=== PATIENT | male | born 1960 | race Caucasian/White ===

== ENCOUNTER → 2018-04-05 | Outpatient (CLI) | payer OTHER | LOC: M.CT 13:00 | DX: E04.2 Nontoxic multinodular goiter (principal); J92.9 Pleural plaque without asbestos; I25.10 Atherosclerotic heart disease of native coronary artery without angina pectoris; R91.1 Solitary pulmonary nodule; E83.52 Hypercalcemia; Z79.899 Other long term (current) drug therapy ==

== ENCOUNTER → 2018-12-10 | Outpatient (CLI) | payer OTHER ==
[~2018-12-10] MED LIST: ACTOS 45 MG45 M1 PO; AMARYL2 M1 PO; ASA81BEC PO; B-125000 MC1 SUBLING; JANUMET XR 50-1 EAC1 PO; LASIX 40 MG TAB40 MG PO; LIPITOR80 MG PO; LISINOPRIL2.5 MG PO; LOPRESSOR50 MG PO; NORTRIPTYLINE H25 M3 PO; OXYCODONE HCL 55 MG PO; PROTONIX40 M1 PO; ZOFRAN ODT4 MG DISSOLVE
[2018-12-10 07:50] LABS: POTASSIUM 4.1 mmol/L (3.5-5.1)
== END ==
LOC: M.LAB 05:09
PROVIDERS: Anesthesiology
DX: E87.6 Hypokalemia (principal); E11.9 Type 2 diabetes mellitus without complications

== ENCOUNTER → 2018-12-13 | Outpatient (CLI) | payer OTHER ==
--- NOTE | 2018-12-13 16:55 | EXE ---
[place] [address] STRESS ECHOCARDIOGRAM Name: AUSTEN TIJERINA Room: [facility]#: [id number] Admission: 12/13/18 Attend Phys: Malachi Garcia MD Discharge: Date of : 56 Date of Service: 12/13/18 1655 Report #: [id number] THIS REPORT FOR: //name// APPROVED REPORT Study performed: 12/13/2018 15:28:17 Exam: Dobutamine Stress Echo Indication: CAD Patient Location: Out-Patient Stress Nurse: Liz Varela RN Supervising Physician: Jesus Crum MD Ht: 6 ft 1 in HR: 89 bpm BP: 114/67 mmHg Medical History Cardiac Risk Factors: Hyperlipidemia, HTN, DM, Tobacco History (Former), FHX of CAD Procedure The patient underwent a Pharmacological Stress Test using Dobutamine. Blood pressure, heart rate, and EKG were monitored. An Echocardiogram was performed by master automotive glass technician in four stages in quad fashion. At peak stress, four selected images were obtained and placed side by side with resting images for comparison. Stress Test Details Stress Test: Pharmacological Stress Test using Dobutamine. Reason for pharmacologic stress test: physical limitation. HR Resting HR: 89 bpm Max Heart Rate (APMHR): 160 bpm Max HR Achieved: 138 bpm Target HR (85% APMHR): 136 bpm % of APMHR: 86 Recovery HR: 100 bpm HR response to stress: Normal HR response to stress BP Resting BP: 114/67 mmHg Max BP: 191/42 mmHg Recovery BP: 128/59 mmHg BP response to stress: Normal blood pressure response [place] [address] STRESS ECHOCARDIOGRAM Name: AUSTEN TIJERINA Room: [facility]#: [id number] Admission: 12/13/18 Attend Phys: Malachi Garcia MD Discharge: Date of : 56 Date of Service: 12/13/18 1655 Report #: [id number] Resting ECG: nonspecific baseline st-t changes Stress ECG: additional 11/2 mm of downsloping inferolateral st depression during dobutamine infusion Clinical Reason for Termination: Reached Target Heart Rate Pre-Stress Echo The resting Echocardiogram showed normal left ventricular contractility with an estimated Ejection Fraction of about 55-60%. Normal wall motion in all segments on baseline images. Post-Stress Echo The stress Echocardiogram showed normal left ventricular contractility with an estimated Ejection Fraction of about >70%. Normal augmentation of wall motion in all segments on post stress images. Conclusion Clinical Response: Non-ischemic Stress ECG Response: Indeterminant Stress Echo Images: Non-ischemic Other Information Study Quality: Fair <ELECTRONICALLY SIGNED> By: Jesus Crum MD, [facility] 12/13/18 1655 54 54 Jesus Crum MD, [facility] /INF
== END ==
LOC: M.CRD 14:37
DX: I25.810 Atherosclerosis of coronary artery bypass graft(s) without angina pectoris (principal); E87.6 Hypokalemia; E11.9 Type 2 diabetes mellitus without complications; E78.5 Hyperlipidemia, unspecified; I10 Essential (primary) hypertension; Z82.49 Family history of ischemic heart disease and other diseases of the circulatory system

== ENCOUNTER 2019-01-02 22:03 | Inpatient (IN) | payer OTHER ==
[~2019-01-02] VITALS: Ht 182.9 cm; Wt 103.2 kg
[2019-01-02 22:25] VITALS: BP 106/73
[2019-01-02] MEDS ORDERED: ASA81BEC PO (22:32)
[2019-01-02] MEDS ORDERED: LASIX 40 MG TAB40 MG PO (22:32)
[2019-01-02] MEDS ORDERED: B-125000 MC1 SUBLING (22:32)
[2019-01-02] MEDS ORDERED: LIPITOR80 MG PO (22:32)
[2019-01-02] MEDS ORDERED: LOPRESSOR50 MG PO (22:32)
[2019-01-02] MEDS ORDERED: ACTOS 45 MG45 M1 PO (22:33)
[2019-01-02] MEDS ORDERED: LISINOPRIL2.5 MG PO (22:33)
[2019-01-02] MEDS ORDERED: AMARYL2 M1 PO (22:33)
[2019-01-02] MEDS ORDERED: NORTRIPTYLINE H25 M3 PO (22:33)
[2019-01-02] MEDS ORDERED: PROTONIX40 M1 PO (22:34)
[2019-01-02] MEDS ORDERED: JANUMET XR 50-1 EAC1 PO (22:34)
[2019-01-02 23:33] LABS: HEMOGLOBIN 11.8 gm/dL (14.0-18.0); MCH 25.9 pg (26.0-34.0); MCHC 32.8 g/dL (28.0-37.0); MCV 78.8 fL (80.0-100.0); MPV 7.3 fl. (7.2-11.1); NUCLEATED RBCS 0 /100WBC; PLATELET COUNT* 415 thou/uL (150-400); RBC 4.56 mil/uL (4.50-6.00); RDW-CV 18.5 % (10.5-14.5); WBC 14.3 thou/uL (4.0-11.0)
[2019-01-02 23:36] LABS: CALCIUM 8.9 mg/dL (8.5-10.1); CREATININE 2.1 mg/dL (0.6-1.3); INR 1.2; POTASSIUM 3.8 mmol/L (3.5-5.1); PROTIME 12.3 Seconds (9.20-11.50)
[2019-01-02 23:46] LABS: ALBUMIN 2.8 g/dL (3.4-5.0); MAGNESIUM 1.5 mg/dL (1.8-2.4); TOTAL BILIRUBIN 0.9 mg/dL (<0.1-1.0); TOTAL PROTEIN 7.8 g/dL (6.4-8.2)
[2019-01-03 01:22] LABS: ABSOLUTE LYMPHOCYTES 0.7 thou/uL (0.8-5.3); ABSOLUTE MONOCYTES 0.9 thou/uL (0.0-1.2); ABSOLUTE NEUTROPHILS 12.7 thou/uL (1.6-8.1); ANISOCYTOSIS 1+; PLATELET ESTIMATE INCREASED
[2019-01-03 02:21] LABS: URINE BILIRUBIN NEGATIVE (Negative); URINE BLOOD 1+ (Negative); URINE CLARITY CLEAR; URINE COLOR YELLOW; URINE GLUCOSE-RANDOM TRACE (Negative); URINE KETONES TRACE (Negative); URINE LEUKOCYTES-REFLEX NEGATIVE (Negative); URINE NITRITE-REFLEX NEGATIVE (Negative); URINE PROTEIN 1+ (Negative); URINE UROBILINOGEN 0.2 E.U./dl (0.2-1.0)
[2019-01-03 02:50] LABS: FINE GRANULAR CASTS 4-10 Moderate /LPF (None Seen); HYALINE CASTS 0-3 Few /LPF (None Seen); SQUAMOUS 4-10 Moderate /LPF (0-3)
[2019-01-03 02:51] LABS: URINE WBC-REFLEX 6-15 Few /HPF (0-5)
[2019-01-03 02:52] LABS: CRYSTALS None Seen /LPF (None Seen); URINE RBC 0-2 Rare /HPF (0-2)
[2019-01-03 03:50] VITALS: BP 145/76
[2019-01-03 04:00] VITALS: BP 136/76
[2019-01-03 08:00] VITALS: BP 143/74
[2019-01-03 12:46] VITALS: BP 123/60
[2019-01-03 15:29] LABS: AMP/METHAMP Negative (Negative); BARBITURATES Negative (Negative); BENZODIAZEPINES Negative (Negative); COCAINE Negative (Negative); METHADONE Negative (Negative); OPIATES POSITIVE (Negative); PCP Negative (Negative); THC Negative (Negative)
[2019-01-03 15:55] VITALS: BP 135/54
--- NOTE | 2019-01-03 16:48 | 2DMMODE ---
[place] [address] 2 D/M-MODE ECHOCARDIOGRAM Name: AUSTEN TIJERINA Room: [facility] IN [facility]#: [id number] Admission: 01/03/19 Attend Phys: Terrence Greene Discharge: Date of : 56 Date of Service: 01/03/19 1648 Report #: [id number] THIS REPORT FOR: //name// APPROVED REPORT Study performed: 01/03/2019 14:45:00 EXAM: Comprehensive 2D, Doppler, and color-flow Echocardiogram Patient Location: In-Patient Room #: 209 Status: routine BSA: 2.25 HR: 103 bpm BP: 123/60 mmHg Rhythm: NSR Other Information Study Quality: Good Indications Dyspnea 2D Dimensions IVSd: 10.28 (7-11mm) LVOT Diam: 21.66 (18-24mm) LVDd: 54.48 mm PWd: 10.64 (7-11mm) Ascending Ao: 36.01 (22-36mm) LVDs: 33.13 (25-40mm) Aortic Root: 36.54 mm Volumes Left Atrial Volume (Systole) LA ESV Index: 31.10 mL/m2 Aortic Valve AoV Peak Kevin.: 1.75 m/s AO Peak Gr.: 12.22 mmHg LVOT Max P.81 mmHg AO Mean Gr.: 7.42 mmHg LVOT Mean P.94 mmHg LVOT Max V: 1.21 m/s AO V2 VTI: 30.98 cm LVOT Mean V: 0.79 m/s STEVE (VTI): 2.37 cm2 LVOT V1 VTI: 19.94 cm Mitral Valve E/A Ratio: 0.56 MV Decel. Time: 126.39 ms MV E Max Kevin.: 0.67 m/[place] [address] 2 D/M-MODE ECHOCARDIOGRAM Name: AUSTEN TIJERINA Room: [address] IN ..#: [id number] Admission: 01/03/19 Attend Phys: Terrence Greene Discharge: Date of : 56 Date of Service: 01/03/19 1648 Report #: [id number] MV PHT: 36.65 ms MVA (PHT): 6.00 cm2 TDI E/Lateral E': 5.58 E/Medial E': 8.38 Medial E' Kevin.: 0.08 m/s Lateral E' Kevin.: 0.12 m/s Pulmonary Valve PV Peak Kevin.: 0.90 m/s PV Peak Gr.: 3.23 mmHg Left Ventricle The left ventricle is normal size. There is normal LV segmental wall motion. There is normal left ventricular wall thickness. Left ventricular systolic function is normal. The left ventricular ejection fraction is within the normal range. LVEF is 55-60%. Grade I - abnormal relaxation pattern. Right Ventricle The right ventricle is normal size. The right ventricular systolic function is normal. Atria Left atrium is mildly dilated. The right atrium size is normal. Aortic Valve Mild aortic valve sclerosis. No aortic regurgitation is present. There is no aortic valvular stenosis. Mitral Valve There is mitral annular calcification. Trace mitral regurgitation. No evidence of mitral valve stenosis. Tricuspid Valve The tricuspid valve is normal in structure. Trace tricuspid regurgitation. Unable to assess PA pressure. Pulmonic Valve The pulmonary valve is normal in structure. Trace pulmonic regurgitation. Great Vessels The aortic root is normal in size. IVC is normal in size and collapses >50% [place] [address] 2 D/M-MODE ECHOCARDIOGRAM Name: AUSTEN TIJERINA Room: [address] IN [facility]#: [id number] Admission: 01/03/19 Attend Phys: Terrence Greene Discharge: Date of : 56 Date of Service: 01/03/19 1648 Report #: [id number] Pericardium There is no pericardial effusion. <Conclusion> LVEF is 55-60%. Left atrium is mildly dilated. Mild aortic valve sclerosis. <ELECTRONICALLY SIGNED> By: Malachi Garcia MD, FACC 01/03/198 47 47 Malachi Garcia MD, [facility] /INF
--- NOTE | 2019-01-03 18:01 | EKG ---
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: [place] : 1960 Requested By: Yadi James Order Number: [id number] MD: Malachi Garcia Measurements Intervals [place] Rate: 143 P: 43 MO: 128 QRS: 30 QRSD: 105 T: 201 QT: 304 QTc: 469 Interpretive Statements Sinus tachycardia Probable left atrial enlargement Repol abnrm suggests ischemia, anterolateral Compared to ECG 09/22/2005 16:18:16 Left ventricular hypertrophy no longer present Possible ischemia still present Electronically Signed On 01-03-2019 18:01:35 CDT by Malachi Garcia [email or web address] <ELECTRONICALLY SIGNED> By: Malachi Garcia MD, FACC 01/03/19 1801 29 29 Malachi Garcia MD, [facility] /EPI
[2019-01-03 20:45] VITALS: BP 151/74
[2019-01-04] VITALS: BP 131/68
[2019-01-04 04:00] VITALS: BP 120/54
[2019-01-04 04:32] LABS: MCHC 33.3 g/dL (28.0-37.0); RBC 3.72 mil/uL (4.50-6.00); RDW-CV 18.4 % (10.5-14.5); WBC 8.7 thou/uL (4.0-11.0)
[2019-01-04 04:53] LABS: HEMOGLOBIN 9.7 gm/dL (14.0-18.0)
[2019-01-04 05:26] LABS: CALCIUM 8.2 mg/dL (8.5-10.1); CREATININE 1.3 mg/dL (0.6-1.3); MAGNESIUM 1.6 mg/dL (1.8-2.4); PHOSPHORUS* 1.6 mg/dL (2.5-4.9); TOTAL BILIRUBIN 0.6 mg/dL (<0.1-1.0)
[2019-01-04 05:30] LABS: POTASSIUM 2.7 mmol/L (3.5-5.1)
[2019-01-04 08:04] VITALS: BP 117/53
[2019-01-04 20:00] VITALS: BP 120/57
[2019-01-05] VITALS (7 sets, daily range): BP systolic 119–149; BP diastolic 55–76
[2019-01-05 07:15] LABS: HEMATOCRIT 28.5 % (42.0-52.0); HEMOGLOBIN 9.4 gm/dL (14.0-18.0); MCH 26.1 pg (26.0-34.0); MCV 78.9 fL (80.0-100.0); MPV 7.9 fl. (7.2-11.1); RBC 3.62 mil/uL (4.50-6.00); RDW-CV 18.4 % (10.5-14.5); WBC 9.6 thou/uL (4.0-11.0)
[2019-01-05 07:27] LABS: ALBUMIN 1.9 g/dL (3.4-5.0); CALCIUM 7.8 mg/dL (8.5-10.1); CREATININE 1.5 mg/dL (0.6-1.3); MAGNESIUM 1.6 mg/dL (1.8-2.4); PHOSPHORUS* 1.7 mg/dL (2.5-4.9); POTASSIUM 3.4 mmol/L (3.5-5.1); TOTAL BILIRUBIN 0.5 mg/dL (<0.1-1.0); TOTAL PROTEIN 6.2 g/dL (6.4-8.2)
[2019-01-06 03:30] VITALS: BP 140/48
[2019-01-06 08:00] VITALS: BP 146/50
[2019-01-06 11:54] VITALS: BP 115/51
[2019-01-06] MEDS ORDERED: ZOFRAN ODT4 MG DISSOLVE (12:59)
[2019-01-06 13:25] VITALS: BP 127/65
[2019-01-06 13:27] VITALS: BP 127/65
[2019-01-06] MEDS ORDERED: OXYCODONE HCL 55 MG PO (13:46)
--- NOTE | 2019-01-08 13:09 | CON ---
[facility] [address] [place] [address] CONSULTATION Name: AUSTEN TIJERINA Room: [address] IN M.R.#: [id number] Admission: 01/03/19 Attend Phys: Tyler Garza Discharge: 01/06/19 Date of : 56 Report #: [id number] THIS REPORT FOR: //name// CC: Cira Greene DICTATED BY: Jammie Boyle [facility] DATE OF SERVICE: 01/03/2019 Please note at the time of this dictation, the patient was seen and physically examined by myself. REASON FOR CONSULTATION: Abdominal pain, history of pancreatitis. HISTORY OF PRESENT ILLNESS: This is a 58-year-old male who presented to the Emergency Room after being seen out of state in [facility]. 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 He states it was not chest pain, but it was persistent abdominal pain. They wanted to admit him, but he did not want to be admitted. He wanted to get back here once he knew what his diagnosis was. They had diagnosed him with pancreatitis. His LFTs were completely normal at that time. They stated that his lipase was greater than 400 and that he did have a CT scan that showed sludge as well as enlarged liver and peripancreatic edema was noted at that time. The patient states he was able to drive back home. He got home on the 01/02. He states his pain had pretty much subsided by that time. He has not really had anything to eat or drink over this period of time, but given that he was recently diagnosed with that, he went home, took a shower, and then came to the Emergency Room to be seen and was admitted for further observation. The patient did undergo a double on 12/07 that showed short-segment Holt esophagus with no dysplasia, 3-cm hiatal hernia. He had diverticulosis in the sigmoid, and he had some hyperplastic polyps that were noted with a repeat in 5 years. The patient at this time, at the time he was seen, denies any nausea, vomiting, or any abdominal pain at this time. He states his bowels last moved was Thursday, but he really has not had anything significant to eat since that time. ALLERGIES: No known drug allergies. MEDICATIONS FROM HOME: Aspirin, vitamin B12, Lipitor, Lopressor, Lasix, Amaryl, nortriptyline, Zestril, Actos, Janumet, and Protonix. PAST MEDICAL HISTORY: Diabetic, hypertension, [place] [address] CONSULTATION Name: AUSTEN TIJERINA Room: [address] IN M.R.#: [id number] Admission: 01/03/19 Attend Phys: Tyler Garza Discharge: 01/06/19 Date of : 56 Report #: [id number] PAST SURGICAL HISTORY: History of bypass surgery. FAMILY HISTORY: Negative for any GI or female cancers. SOCIAL HISTORY: Denies any alcohol or illegal drug use. He does smoke on a regular basis. REVIEW OF SYSTEMS: Twelve-point review of systems is essentially negative except what is mentioned in the HPI. PHYSICAL EXAMINATION: VITAL SIGNS: Temperature 37, pulse 110, respirations 18, blood pressure 143/74. HEART: Regular rate and rhythm. LUNGS: Clear, but diminished. ABDOMEN: Soft, positive bowel sounds in all 4 quadrants with no masses or tenderness noted. LABORATORY DATA: Hemoglobin is 11.8, white count is 14.3, platelets are 415. GFR is 32. Lipase is 334. BNP was 3469 and his LFTs are completely normal. Chest x-ray, negative. Abdominal x-ray done this morning showed an enlarged liver with sludge noted and a CBD of 4.3 mm. IMPRESSION: 1. Abdominal pain, resolved. 2. Pancreatitis, resolved. 3. Sludge noted in the gallbladder. 4. Leukocytosis. 5. Chronic kidney disease. 6. Heart disease. PLAN: 1. We will consult Dr. Go, General Surgery. 2. We will consult junior qa analyst, Dr. Garcia, whom he sees for okay to possibly have surgery. 3. Clear liquids and advance as tolerated. Thank you for allowing us to participate in this patient's care. Please do not hesitate to call with any questions in regard to this consult. <ELECTRONICALLY SIGNED> By: Alexei Gilliam DO 01/08/19 1309 1228 [id number] Gilliam DO /nt
--- NOTE | 2019-01-10 14:06 | PATH ---
[facility] [address] [place] [address] PATHOLOGY RPT PROCEDURE Name: AUSTEN TIJERINA Room: [address] IN M.R.#: [id number] Admission: 01/03/19 Date of : 56 Discharge: 01/06/19 Report #: [id number] Path Case #: [id number] [facility] Accession Number: [id number] . 01 Material submitted: . gallbladder - GALLBLADDER . 01 Clinical history: . Cholecystitis with gallstone, pancreatitis . 02 Diagnosis: Gallbladder: - Chronic cholecystitis and cholesterolosis with benign sentinel lymph node. See comment. . (SLAVA:corbin; 01/10/2019) QMS 01/10/2019 1153 Local . 02 Comment: No calculi are identified in the submitted specimen. (SLAVA:corbin; 01/10/2019) . 02 Electronically signed: . Pineda Howell MD, Pathologist NPI- [id number] . 01 Gross description: . Received in formalin labeled "Austen Tijerina, gallbladder," is an intact, turgid gallbladder measuring 9.2 x 4.7 x 3.8 cm in greatest dimensions. The serosal surface is smooth to partially disrupted, dark green to focally hemorrhagic and partially adipose-covered in appearance. Opening the specimen reveals a dark green mucosa displaying faint yellow highlights and measuring 0.1 cm in thickness, with a gallbladder wall thickness of up to 0.5 cm including attached adipose tissue. No polyps or nodules are identified grossly. Calculi are not present within the specimen or specimen container. Tram Inspector sections of the infundibulum, body and fundus are submitted in cassette A1. (DAC; 01/07/2019) XDC/XID 01/10/2019 1153 Local . 02 Pathologist provided ICD-10: K81.1, K82.4 . 02 CPT . 543814 Specimen Comment: A courtesy copy of this report has been sent to [phone] Specimen Comment: [phone], [place] [address] PATHOLOGY RPT PROCEDURE Name: AUSTEN TIJERINA Room: [address] IN M.R.#: [id number] Admission: 01/03/19 Date of : 56 Discharge: 01/06/19 Report #: [id number] Path Case #: [id number] Specimen Comment: Report sent to ,DR BRICENO / DR BENSON Performed at: [address], [place], [place] [id number] MD Anton Brambila MD Phone: [phone] Performed at: 02 [facility] [address], [place], [place] [id number] MD Pineda Howell MD Phone: [phone]
--- NOTE | 2019-01-18 13:35 | OP ---
[address] [address] OPERATIVE REPORT Name: AUSTEN TIJERNIA Room: [address] IN .R.#: [id number] Admission: 01/03/19 Attend Phys: Tyler Garza Discharge: 01/06/19 Date of : 56 Report #: [id number] THIS REPORT FOR: //name// CC: Alexander Hernandez RIBBING MACHINE OPERATOR Terrence Greene DICTATED BY: Ilda Rodriguez DO DATE OF SERVICE: 01/05/2019 Dictating for Alexander Go DO PRIMARY CARE PHYSICIAN: Cira Han, nurse practitioner. PREOPERATIVE DIAGNOSES: Acute cholecystitis with pancreatitis. POSTOPERATIVE DIAGNOSES: Acute cholecystitis with pancreatitis. PROCEDURE PERFORMED: Laparoscopic cholecystectomy, intraoperative cholangiogram, and surgeon interpretation of images and immunofluorescence imaging. PRIMARY SURGEON: Alexander Go DO CHILD WELFARE COUNSELOR: Ilda Rodriguez DO, PGY2 SECOND TRACK MECHANIC: Damian Brice, MS4 ANESTHESIA: General and TAP block. ESTIMATED BLOOD LOSS: 20 mL. FINDINGS: Acute on chronic inflammation of the gallbladder, normal biliary anatomy. On cholangiogram, the cystic duct appeared patent as well as the common bile duct with no obvious filling defects. Contrasts flowed freely into the duodenum. Both hepatic radicles were also visualized. COMPLICATIONS: None. SPECIMEN: Gallbladder. INDICATIONS FOR PROCEDURE: The patient is a 58-year-old gentleman, who presented to the Emergency Department on 01/02 with complaint of continued abdominal pain and nausea. A few days prior to his presentation, he was in [address] [address] OPERATIVE REPORT Name: AUSTEN TIJERINA Room: [address] IN [facility].#: [id number] Admission: 01/03/19 Attend Phys: Tyler Garza Discharge: 01/06/19 Date of : 56 Report #: [id number] [place] and was seen in the Emergency Department and diagnosed with pancreatitis. He elected to not agree to admission in [place] and drove home. He then promptly presented to the Emergency Department here for further workup. On admission, his lipase was normal; however, he continued to have abdominal pain and nausea. He did have a leukocytosis as well as tachycardia on admission. Total bili and LFTs are within normal limits. He was noted to have sludge in the gallbladder on ultrasound as well. He has a history of coronary artery disease, status post CABG, so he did undergo cardiac clearance prior to surgery as well as a CTA of the chest to rule out a pulmonary embolus; as his D-dimer is elevated, this was negative, so we planned to proceed with laparoscopic cholecystectomy with intraoperative cholangiogram. Procedure, risks, benefits, possible complications were all discussed with the patient in detail to include bleeding, infection, injury to surrounding structures, bile leak, injury to common bile duct, anesthesia risks, and other risks of surgery were discussed with the patient in great detail. He voiced complete understanding and wished to proceed with surgery. DESCRIPTION OF PROCEDURE: Informed consent was obtained. The patient was taken to the operating room and placed supine on the operating room table. The patient was getting scheduled antibiotics prior to surgery. SCDs were placed on bilateral lower extremities. General endotracheal anesthesia was induced without difficulty. A TAP block was performed. The patient was prepped and draped in the standard sterile fashion. Timeout was performed to ensure correct patient and procedure. We began by making a vertical 3-cm supraumbilical incision with a #11 blade scalpel. Incision was carried down through the subcutaneous tissue using electrocautery until we reached the level of the fascia. Fascia was scored with electrocautery and then grasped on either side with 2 Kochers. Fascia was elevated and then incised with electrocautery. Peritoneum was entered bluntly using a hemostat. A 0 Vicryl stay sutures were placed on either side of the fascial opening. A 5-mm Kathryn trocar was then inserted through our fascial opening. Abdomen was insufflated without issues. Laparoscopic camera was inserted. A sweep of the anterior abdominal contents was performed. No obvious abnormalities noted. We then placed a 10-mm subxiphoid trocar under direct visualization. Blunt grasper was inserted and gallbladder was identified in the expected position in the right upper quadrant. Our two 5-mm right upper quadrant trocars were then inserted under direct visualization. The players assistant grasped the gallbladder fundus with a locking grasper and retracted it superiorly and anteriorly. Gallbladder did appear to be acutely inflamed. Casandra pouch was grasped. There is a thick layer of fat adhered to the surface of the gallbladder. Electrocautery was used to score the peritoneum overlying this. We then began our dissection lateral to Casandra pouch using electrocautery. [place] dissector was also used to grasp some of the overlying fat and bluntly dissected away from our cystic duct. Immunofluorescence imaging was used to identify our cystic duct and common bile duct. We then retracted the gallbladder laterally to dissect out medial aspect of the cystic duct. Combination of electrocautery and blunt dissection were [address] [address] OPERATIVE REPORT Name: AUSTEN TIJERINA Room: [address] IN Isma#: [id number] Admission: 01/03/19 Attend Phys: Tyler Garza Discharge: 01/06/19 Date of : 56 Report #: [id number] used to accomplish this. Once our cystic duct was easily identified, [place] dissector was used to bluntly dissect a window just posterior to the duct. A 10-mm clip commissioned police officer was then used to place a clip on the superior aspect of the cystic duct. Laparoscopic scissors were used to partially cut our cystic duct. A 14-gauge Angiocath was then inserted through the right upper quadrant of the abdominal wall. Our cholangiogram catheter with a 3-way stopcock, saline and Omnipaque were brought onto the field. Cholangiogram catheter was inserted through the Angiocath, was inserted into the opening and our cystic duct and then secured with another clip. The patient was flattened out. C-arm was brought in. Back End Architect image was obtained to ensure correct orientation. Once we were in good position, we ran fluoro using Omnipaque. The cystic duct appeared patent as well as the common bile duct. Contrast flowed freely into the duodenum with no obvious filling defects. Both hepatic radicles were also easily visualized. Our fluoro time was 11 seconds. C-arm was then backed away. The patient was returned to the head up in left side down position. Precision Filer Hand then regrasped the gallbladder, retracted it superiorly and anteriorly. Clip securing our cholangiogram catheter was removed. Cholangiogram catheter was removed. We then placed 3 clips on the distal aspect of the cystic duct. Cystic duct was completely transected then using laparoscopic scissors. Cystic artery was identified just posterior to our cystic duct in the expected position. It was also dissected free using combination of blunt dissection and electrocautery. A 10-mm clip commissioned police officer was used to place 1 clip proximally and 2 clips distally on the cystic artery. It was then transected using laparoscopic scissors. Our gallbladder was then completely removed from the liver bed using electrocautery. We did encounter a small posterior cystic artery. Again, 10-mm clip commissioned police officer was used to place a clip on this. Gallbladder was completely removed from the liver bed and placed in an EndoCatch bag. The liver edge was then lifted up, so that we could inspect liver bed. Suction pusher operator was used to irrigate the right upper quadrant. We took another look at our clips to ensure there was no leak. Liver bed appeared hemostatic. The patient was then flattened out. Right upper quadrant was again irrigated with the suction pusher operator. Our 5-mm right upper quadrant trocars were removed under direct visualization. The subxiphoid 10-mm trocar was removed under direct visualization. Abdomen was desufflated. The 5-mm Kathryn trocar was removed as well as the gallbladder within the EndoCatch bag. Fascia at the supraumbilical incision was closed using 0 Vicryl suture in a [id number] fashion. Subcutaneous tissue was closed using 3-0 Vicryl suture in a simple interrupted and inverted fashion. Skin was closed using 4-0 Monocryl suture in a running subcuticular fashion. Right upper quadrant and subxiphoid trocar sites were closed using 4-0 Monocryl suture in a simple interrupted and inverted fashion. Abdomen was cleansed and dried. Sterile dressings were applied using Mastisol, Steri-Strips, Tegaderms, 4 x 4s, and Medipore tape. The patient tolerated the [address] [address] OPERATIVE REPORT Name: AUSTEN TIJERINA Room: M.209-P DIS IN M.R.#: [id number] Admission: 01/03/19 Attend Phys: Tyler Garza Discharge: 01/06/19 Date of : 56 Report #: [id number] procedure very well. He was transferred to the PACU in stable condition with plans to return to the floor and likely discharged home tomorrow. <ELECTRONICALLY SIGNED> By: Alexander Go DO 01/18/19 1335 1740 1921Aney Go DO /nt
== END 2019-01-06 13:49 | disposition home or self-care (01) | DRG 853 ==
LOC: M.ERS 22:03 → M.TBA-ER 01-03 01:17 → M.2W 01-03 01:17
PROVIDERS: Personal Emergency Response Attendant; Registered Nurse; ADMIT Internal Medicine
PROC: BF121ZZ Fluoroscopy of Gallbladder using Low Osmolar Contrast (ICD-10-PCS; principal; 2019-01-05)
PROC: 0FT44ZZ Resection of Gallbladder, Percutaneous Endoscopic Approach (ICD-10-PCS; principal; 2019-01-05)
DX: A41.9 Sepsis, unspecified organism (principal); K85.90 Acute pancreatitis without necrosis or infection, unspecified; K81.0 Acute cholecystitis; N17.9 Acute kidney failure, unspecified; N18.9 Chronic kidney disease, unspecified; F17.210 Nicotine dependence, cigarettes, uncomplicated; E66.9 Obesity, unspecified; I25.10 Atherosclerotic heart disease of native coronary artery without angina pectoris; R00.0 Tachycardia, unspecified; I12.9 Hypertensive chronic kidney disease with stage 1 through stage 4 chronic kidney disease, or unspecified chronic kidney disease; E11.22 Type 2 diabetes mellitus with diabetic chronic kidney disease; E78.5 Hyperlipidemia, unspecified; D64.9 Anemia, unspecified; Z68.30 Body mass index [BMI] 30.0-30.9, adult; Z95.1 Presence of aortocoronary bypass graft; Z79.82 Long term (current) use of aspirin; Z79.899 Other long term (current) drug therapy; Z90.49 Acquired absence of other specified parts of digestive tract

== ENCOUNTER → 2019-01-12 | Outpatient (CLI) | payer OTHER ==
--- NOTE | 2019-01-15 10:07 | PATH ---
[address] [address] PATHOLOGY RPT PROCEDURE Name: AUSTEN TIJERINA Room: [facility].#: [id number] Admission: 01/12/19 Date of : 56 Discharge: Report #: [id number] Path Case #: [id number] [facility] Accession Number: [id number] . 01 Material submitted: . thigh - LEFT THIGH. Modifiers: left . 01 Clinical history: . Wound left thigh . 02 Diagnosis: Skin, left thigh, punch biopsy: - Hyperplastic squamous epithelium with hyperkeratosis. - Focal ulceration with associated moderate chronic inflammation. (SKM:pit; 01/14/2019) QTP 01/14/2019 1252 Local . 02 Electronically signed: . Melchor Saenz MD, Pathologist NPI- [id number] . 01 Gross description: . The specimen is received in formalin, labeled "Austen Tijerina, left leg wound" and "left thigh punches" per follows specimen form. Received are 2 pink-sheppard skin punches measuring 0.4 x 0.4 x 0.4 cm and 0.4 x 0.4 x 0.5 cm. They are d differentially inked, bisected, and entirely submitted in A1. (SDY; 01/13/2019) SYU/SYU 01/13/2019 1319 Local . 02 Pathologist provided ICD-10: L85.9, L98.499, L98.9 . 02 CPT . 321525 Specimen Comment: A courtesy copy of this report has been sent to [phone] Specimen Comment: [phone] Specimen Comment: Report sent to / DR BENSON Performed at: 01 [facility] [address], [place], [place] [id number] MD Anton Brambila MD Phone: [phone] Performed at: 02 [facility] [address], [place], [place] [id number] MD Pineda Howell MD Phone: [phone]
== END ==
LOC: M.WC 08:00
DX: E11.622 Type 2 diabetes mellitus with other skin ulcer (principal); L89.892 Pressure ulcer of other site, stage 2; L97.122 Non-pressure chronic ulcer of left thigh with fat layer exposed; E11.65 Type 2 diabetes mellitus with hyperglycemia; E66.9 Obesity, unspecified; E78.5 Hyperlipidemia, unspecified; D48.5 Neoplasm of uncertain behavior of skin; I10 Essential (primary) hypertension; I25.10 Atherosclerotic heart disease of native coronary artery without angina pectoris; K21.9 Gastro-esophageal reflux disease without esophagitis; F17.200 Nicotine dependence, unspecified, uncomplicated; Z90.49 Acquired absence of other specified parts of digestive tract

== ENCOUNTER → 2019-01-19 | Outpatient (CLI) | payer OTHER | LOC: M.WC 05:00 | DX: E11.622 Type 2 diabetes mellitus with other skin ulcer (principal); L89.892 Pressure ulcer of other site, stage 2; L97.122 Non-pressure chronic ulcer of left thigh with fat layer exposed; L03.116 Cellulitis of left lower limb; E11.65 Type 2 diabetes mellitus with hyperglycemia; E66.9 Obesity, unspecified; E78.5 Hyperlipidemia, unspecified; I87.2 Venous insufficiency (chronic) (peripheral); I10 Essential (primary) hypertension; I25.10 Atherosclerotic heart disease of native coronary artery without angina pectoris; K21.9 Gastro-esophageal reflux disease without esophagitis; F17.200 Nicotine dependence, unspecified, uncomplicated ==

== ENCOUNTER → 2019-01-26 | Outpatient (CLI) | payer OTHER | LOC: M.WC 04:55 | DX: E11.622 Type 2 diabetes mellitus with other skin ulcer (principal); L89.892 Pressure ulcer of other site, stage 2; L97.122 Non-pressure chronic ulcer of left thigh with fat layer exposed; L03.116 Cellulitis of left lower limb; E11.65 Type 2 diabetes mellitus with hyperglycemia; E78.5 Hyperlipidemia, unspecified; E66.9 Obesity, unspecified; I10 Essential (primary) hypertension; I25.10 Atherosclerotic heart disease of native coronary artery without angina pectoris; K21.9 Gastro-esophageal reflux disease without esophagitis; F17.200 Nicotine dependence, unspecified, uncomplicated ==

== ENCOUNTER → 2019-02-02 | Outpatient (CLI) | payer OTHER | LOC: M.WC 05:41 | DX: E11.622 Type 2 diabetes mellitus with other skin ulcer (principal); L89.892 Pressure ulcer of other site, stage 2; L97.121 Non-pressure chronic ulcer of left thigh limited to breakdown of skin; L03.116 Cellulitis of left lower limb; E11.65 Type 2 diabetes mellitus with hyperglycemia; E66.9 Obesity, unspecified; E78.5 Hyperlipidemia, unspecified; I87.2 Venous insufficiency (chronic) (peripheral); I10 Essential (primary) hypertension; I25.10 Atherosclerotic heart disease of native coronary artery without angina pectoris; K21.9 Gastro-esophageal reflux disease without esophagitis; F17.200 Nicotine dependence, unspecified, uncomplicated ==

== ENCOUNTER → 2019-02-09 | Outpatient (CLI) | payer OTHER | LOC: M.WC 03:57 | DX: E11.622 Type 2 diabetes mellitus with other skin ulcer (principal); L97.121 Non-pressure chronic ulcer of left thigh limited to breakdown of skin; L89.892 Pressure ulcer of other site, stage 2; L03.116 Cellulitis of left lower limb; I10 Essential (primary) hypertension; E78.5 Hyperlipidemia, unspecified; I25.10 Atherosclerotic heart disease of native coronary artery without angina pectoris; E66.9 Obesity, unspecified; F17.200 Nicotine dependence, unspecified, uncomplicated; Z68.30 Body mass index [BMI] 30.0-30.9, adult ==

== ENCOUNTER → 2019-07-19 | Outpatient (CLI) | payer OTHER | LOC: M.ULTRA 10:43 | DX: E04.2 Nontoxic multinodular goiter (principal); E83.52 Hypercalcemia ==

== ENCOUNTER → 2019-07-26 | Outpatient (CLI) | payer OTHER | LOC: M.ULTRA 12:44 | DX: K76.0 Fatty (change of) liver, not elsewhere classified (principal); N18.3 Chronic kidney disease, stage 3 (moderate) ==

== ENCOUNTER → 2019-08-02 | Outpatient (CLI) | payer OTHER | LOC: M.NUC 07-22 13:42 | DX: D35.1 Benign neoplasm of parathyroid gland (principal) ==

== ENCOUNTER → 2019-11-30 | Outpatient (CLI) | payer OTHER ==
--- NOTE | 2019-11-30 17:30 | EXE ---
[place] [address] STRESS ECHOCARDIOGRAM Name: AUSTEN TIJERINA Room: [facility] Isma#: [id number] Admission: 11/30/19 Attend Phys: Malachi Garcia MD Discharge: Date of : 56 Date of Service: 11/30/19 1730 Report #: [id number] THIS REPORT FOR: cc: Cira Han Tammy RNP Blick, David R. MD [facility] ~ APPROVED REPORT Study performed: 11/30/2019 15:07:47 Exam: Dobutamine Stress Echo Indication: CAD Patient Location: Out-Patient Stress Nurse: Liz Varela RN Supervising Physician: Malachi Garcia MD Ht: 5 ft 11 in HR: 82 bpm BP: 148/59 mmHg Medical History Medical History: CAD Allergies: No known drug allergies Cardiac Risk Factors: Age, , Hyperlipidemia, HTN, DM Previous Cardiac Procedures: CABG, PCI Procedure The patient underwent a Pharmacological Stress Test using Dobutamine. Blood pressure, heart rate, and EKG were monitored. An Echocardiogram was performed by clinical dental technician in four stages in quad fashion. At peak stress, four selected images were obtained and placed side by side with resting images for comparison. Stress Test Details Stress Test: Pharmacological Stress Test using Dobutamine. HR Resting HR: 82 bpm Max Heart Rate (APMHR): 159 bpm Max HR Achieved: 133 bpm Target HR (85% APMHR): 135 bpm % of APMHR: 83 Recovery HR: 102 bpm HR response to stress: Normal HR response to stress BP Resting BP: 148/59 [place] [address] STRESS ECHOCARDIOGRAM Name: AUSTEN TIJERINA [facility]: [facility]#: [id number] Admission: 11/30/19 Attend Phys: Malachi Garcia MD Discharge: Date of : 56 Date of Service: 11/30/19 1730 Report #: [id number] Max BP: 111/73 mmHg Recovery BP: 115/64 mmHg BP response to stress: Normal blood pressure response to stress. ECG Resting ECG: Sinus Rhythm Stress ECG: Sinus Rhythm, nonspecific ST-T abnormalities ST Change: Horizontal ST depression Maximum ST Deviation: 1.5 mm Arrhythmia: VPC's Recovery ECG: Sinus Rhythm, nonspecific ST-T abnormalities Recovery ST Change: Horizontal ST depression Recovery ST Deviation: 0.5 mm Recovery Arrhythmia: VPC Clinical Reason for Termination: Completed protocol Pre-Stress Echo The resting Echocardiogram showed normal left ventricular contractility with an estimated Ejection Fraction of about %. Post-Stress Echo The stress Echocardiogram showed normal left ventricular contractility with an estimated Ejection Fraction of about %. Endocadium was not well visualized making segmental wall motion abnormalities difficult to visualize. Conclusion Clinical Response: Non-ischemic Stress ECG Response: Ischemic Stress Echo Images: Indeterminant Moderate risk dobutamine stress echo for predicting future cardiac events. Other Information Study Quality: Poor <Conclusion> [place] [address] STRESS ECHOCARDIOGRAM Name: AUSTEN TIJERINA Room: [facility]#: [id number] Admission: 11/30/19 Attend Phys: Malachi Garcia MD Discharge: Date of : 56 Date of Service: 11/30/191729 Report #: [id number] Moderate risk dobutamine stress echo for predicting future cardiac events. <ELECTRONICALLY SIGNED> By: Malachi Garcia MD, [facility] 11/30/191729 29 29 Malachi Garcia MD, [facility] /INF
== END ==
LOC: M.CRD 14:33
PROVIDERS: ATTEND Internal Medicine Cardiovascular Disease
DX: I25.810 Atherosclerosis of coronary artery bypass graft(s) without angina pectoris (principal)

== ENCOUNTER → 2019-12-19 | Outpatient (CLI) | payer OTHER | LOC: M.CT 12-15 11:00 | PROVIDERS: ATTEND Registered Nurse Diabetes Educator | DX: J84.10 Pulmonary fibrosis, unspecified (principal); I25.10 Atherosclerotic heart disease of native coronary artery without angina pectoris; R91.1 Solitary pulmonary nodule; Z87.891 Personal history of nicotine dependence ==

== ENCOUNTER 2020-03-04 00:10 | Inpatient (IN) | payer OTHER ==
[~2020-03-04] VITALS: Ht 182.9 cm; Wt 106.6 kg
[~2020-03-04 00:10] MED LIST changes: -PROTONIX40 M1 PO; +PROTONIX40 M4 PO
[2020-03-04] MEDS ORDERED: PLAVIX 75 MG TA75 MG PO (00:23)
[2020-03-04] MEDS ORDERED: FENOFIBRATE160 MG PO (00:24)
[2020-03-04] MEDS ORDERED: TRULICITY0.75 MG/0. (00:24)
[2020-03-04 00:25] VITALS: BP 126/75
[2020-03-04 00:49] LABS: HEMATOCRIT 36.7 % (42.0-52.0); HEMOGLOBIN 11.7 gm/dL (14.0-18.0); MCH 25.1 pg (26.0-34.0); MCHC 31.9 g/dL (28.0-37.0); MCV 78.6 fL (80.0-100.0); MPV 7.1 fl. (7.2-11.1); NUCLEATED RBCS 0 /100WBC; PLATELET COUNT* 326 thou/uL (150-400); RBC 4.67 mil/uL (4.50-6.00); RDW-CV 26.7 % (10.5-14.5)
[2020-03-04 00:55] LABS: CALCIUM 9.5 mg/dL (8.5-10.1); CREATININE 1.6 mg/dL (0.6-1.3); POTASSIUM 3.7 mmol/L (3.5-5.1)
[2020-03-04 01:03] LABS: ALBUMIN 3.3 g/dL (3.4-5.0); TOTAL BILIRUBIN 0.4 mg/dL (<0.1-1.0); TOTAL PROTEIN 8.1 g/dL (6.4-8.2)
[2020-03-04 01:45] LABS: ABSOLUTE BASOPHILS 0.1 thou/uL (0.0-0.2); ABSOLUTE MONOCYTES 0.4 thou/uL (0.0-1.2); ABSOLUTE NEUTROPHILS 7.6 thou/uL (1.6-8.1); BASOPHILS 0.8 %; EOSINOPHILS 0.2 %
[2020-03-04 01:46] LABS: ANISOCYTOSIS 2+; MACROCYTES 1+; OVALOCYTES 1+; POIKILOCYTOSIS 2+; SCHISTOCYTES 1+
[2020-03-04 01:47] LABS: PLATELET ESTIMATE ADEQUATE; POLYCHROMASIA Occasional
[2020-03-04 02:57] VITALS: BP 161/83
[2020-03-04 03:30] VITALS: BP 166/77
--- NOTE | 2020-03-04 05:17 | NUR ---
Pt admitted to unit at 0300. Get situated to room. Tele in placed tracing sinus rhythm, 1st degree AVB. Pt complains of mild abdominal pain. Pt given pain meds on ED. IVF infusing as ordered. Pt NPO. Call light within reach, will continue POC.
[2020-03-04 08:00] VITALS: BP 157/84
--- NOTE | 2020-03-04 13:15 | EKG ---
[place] [address] ELECTROCARDIOGRAM REPORT Name: AUSTEN TIJERINA Room: [address] ADM IN M.R.#: [id number] Admission: 03/04/20 Attend Phys: Shaq Avila Discharge: Date of : 56 Date of Service: 03/04/20 0032 Report #: [id number] THIS REPORT FOR: //name// 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 : 1960 Requested By: Toñito Castillo Order Number: [id number] MD: Javi Vo Measurements Intervals [place] Rate: 97 P: 50 GA: 189 QRS: 18 QRSD: 114 T: 29 QT: 383 QTc: 487 Interpretive Statements Sinus rhythm LVH, by voltage Compared to ECG 01/02/2019 22:30:06 Sinus tachycardia no longer present Early repolarization no longer present Possible ischemia no longer present Electronically Signed On 03-04-2020 13:14:52 SHOES SALESPERSON by Javi Vo [email or web address] <ELECTRONICALLY SIGNED> By: Javi Vo MD, FACC 03/04/20 1314 003 Javi Vo MD, FAC /EPI
[2020-03-04 13:23] LABS: CALCIUM 8.7 mg/dL (8.5-10.1); CREATININE 1.2 mg/dL (0.6-1.3); POTASSIUM 3.5 mmol/L (3.5-5.1)
[2020-03-04 13:26] LABS: MAGNESIUM 1.7 mg/dL (1.8-2.4); PHOSPHORUS* 2.1 mg/dL (2.5-4.9)
[2020-03-04 16:00] VITALS: BP 120/61
[2020-03-04 20:00] VITALS: BP 149/73
[2020-03-05] VITALS: BP 135/45; BP 151/96
[2020-03-05 04:00] VITALS: BP 144/71
[2020-03-05 04:35] LABS: ALBUMIN 2.7 g/dL (3.4-5.0); CALCIUM 8.6 mg/dL (8.5-10.1); CREATININE 1.1 mg/dL (0.6-1.3); POTASSIUM 3.9 mmol/L (3.5-5.1); TOTAL BILIRUBIN 0.4 mg/dL (<0.1-1.0); TOTAL PROTEIN 6.1 g/dL (6.4-8.2)
[2020-03-05 08:00] VITALS: BP 128/56
--- NOTE | 2020-03-05 09:19 | NUR ---
CM SPOKE TO THE PT TO DISCUSS CM ASSESSMENT. PT A&O, INDEPENDENT WITH ADL'S, ACTIVE AND WORKS OUTSIDE THE HOME. PT RESIDES AT HOME ALONE. PT OWNS 0 DME. PT HAS 0 HX OF HH OR SNF. PT INFORMS THAT HE IS HOPEFUL TO GO HOME TODAY. CM WILL REMAIN AVAILABLE TO ASSIST WITH D/C PLANNING NEEDED.
[2020-03-05 11:44] VITALS: BP 138/68
[2020-03-05 15:34] VITALS: BP 125/45
[2020-03-05 20:00] VITALS: BP 136/65
[2020-03-06] VITALS: BP 119/51
[2020-03-06 04:00] VITALS: BP 121/53
[2020-03-06 04:22] LABS: ABSOLUTE EOSINOPHILS 0.1 thou/uL (0.0-0.7); ABSOLUTE LYMPHOCYTES 1.4 thou/uL (0.8-5.3); ABSOLUTE MONOCYTES 0.4 thou/uL (0.0-1.2); ABSOLUTE NEUTROPHILS 6.2 thou/uL (1.6-8.1); BASOPHILS 0.3 %; EOSINOPHILS 1.3 %; HEMATOCRIT 29.5 % (42.0-52.0); LYMPHOCYTES 16.9 %; MCH 25.4 pg (26.0-34.0); MCHC 32.5 g/dL (28.0-37.0); MCV 78.1 fL (80.0-100.0); MONOCYTES 4.9 %; MPV 7.5 fl. (7.2-11.1); NUCLEATED RBCS 0 /100WBC; POLYS 76.6 %; RBC 3.77 mil/uL (4.50-6.00); RDW-CV 25.8 % (10.5-14.5); WBC 8.1 thou/uL (4.0-11.0)
[2020-03-06 04:24] LABS: HEMOGLOBIN 9.6 gm/dL (14.0-18.0); PLATELET COUNT* 242 thou/uL (150-400)
[2020-03-06 05:00] LABS: ALBUMIN 2.5 g/dL (3.4-5.0); CALCIUM 8.5 mg/dL (8.5-10.1); CREATININE 1.2 mg/dL (0.6-1.3); TOTAL BILIRUBIN 0.4 mg/dL (<0.1-1.0); TOTAL PROTEIN 6.8 g/dL (6.4-8.2)
[2020-03-06 07:02] LABS: SCHISTOCYTES 2+
[2020-03-06 07:03] LABS: BURR CELLS 1+; OVALOCYTES 1+
[2020-03-06 07:04] LABS: ANISOCYTOSIS 2+; MICROCYTES 2+; PLATELET ESTIMATE ADEQUATE
[2020-03-06 07:30] VITALS: BP 123/48
--- NOTE | 2020-03-06 11:35 | NUR ---
CM INFORMED DURING PRIME ROUNDING OF THE PLAN OF CARE FOR THE PT. PLAN TO ADVANCE PT'S DIET. AWAITING GI RECOMMENDATIONS FOR D/C. NO CM D/C PLANNING NEEDS ANTICIPATED. CM WILL REMAIN AVAILABLE TO ASSIST AND FOLLOW NEEDED.
[2020-03-06 12:14] VITALS: BP 122/52
[2020-03-06 13:24] LABS: CHOLESTEROL 98 mg/dL (<200); HDL CHOLESTEROL 45 mg/dL (>40); LDL CHOLESTEROL 37 mg/dL (<100); SERUM ASSESSMENT Clear; TC:HDL 2.2 Ratio (Not establshd); TRIGLYCERIDE 82 mg/dL (<150); VLDL 16 mg/dL (<40)
[2020-03-06 15:02] VITALS: BP 122/52
== END 2020-03-06 16:10 | disposition home or self-care (01) | DRG 438 ==
LOC: M.ERS 00:10 → M.2W 01:58 → M.TBA-ER 01:58 → M.2W 02:46
PROVIDERS: Emergency Medicine Emergency Medical Services; Internal Medicine; ADMIT Internal Medicine; ATTEND Internal Medicine
DX: K85.90 Acute pancreatitis without necrosis or infection, unspecified (principal); N17.0 Acute kidney failure with tubular necrosis; K59.00 Constipation, unspecified; D64.9 Anemia, unspecified; I10 Essential (primary) hypertension; F17.210 Nicotine dependence, cigarettes, uncomplicated; E11.9 Type 2 diabetes mellitus without complications; K22.70 Barrett's esophagus without dysplasia; Z20.828 Contact with and (suspected) exposure to other viral communicable diseases; Z90.49 Acquired absence of other specified parts of digestive tract; Z95.1 Presence of aortocoronary bypass graft; Z79.84 Long term (current) use of oral hypoglycemic drugs; Z79.899 Other long term (current) drug therapy

== ENCOUNTER 2020-04-22 19:16 | Inpatient (IN) | payer OTHER ==
[~2020-04-22] VITALS: Ht 182.9 cm; Wt 101.2 kg
[~2020-04-22 19:16] MED LIST changes: +FENOFIBRATE160 MG PO; +PLAVIX 75 MG TA75 MG PO; +TRULICITY0.75 MG/0.
[2020-04-22 19:22] VITALS: BP 127/85
[2020-04-22] MEDS ORDERED: PEPTO-BISMOL262 M1 PO (19:30)
[2020-04-22] MEDS ORDERED: TUMS200 MG PO (19:31)
[2020-04-22 20:13] LABS: ABSOLUTE EOSINOPHILS 0.1 thou/uL (0.0-0.7); ABSOLUTE LYMPHOCYTES 1.4 thou/uL (0.8-5.3); ABSOLUTE MONOCYTES 0.4 thou/uL (0.0-1.2); ABSOLUTE NEUTROPHILS 7.6 thou/uL (1.6-8.1); BASOPHILS 0.5 %; EOSINOPHILS 0.6 %; HEMATOCRIT 39.2 % (42.0-52.0); HEMOGLOBIN 12.8 gm/dL (14.0-18.0); LYMPHOCYTES 14.4 %; MCH 26.1 pg (26.0-34.0); MCHC 32.6 g/dL (28.0-37.0); MCV 80.3 fL (80.0-100.0); MONOCYTES 4.2 %; MPV 7.6 fl. (7.2-11.1); NUCLEATED RBCS 0 /100WBC; PLATELET COUNT* 418 thou/uL (150-400); POLYS 80.3 %; RBC 4.89 mil/uL (4.50-6.00); WBC 9.4 thou/uL (4.0-11.0)
[2020-04-22 20:22] LABS: POTASSIUM 3.7 mmol/L (3.5-5.1)
[2020-04-22 20:24] LABS: PROTIME 10.8 Seconds (9.20-11.50)
[2020-04-22 20:33] LABS: ALBUMIN 3.7 g/dL (3.4-5.0); MAGNESIUM 1.3 mg/dL (1.8-2.4); TOTAL BILIRUBIN 0.3 mg/dL (<0.1-1.0); TOTAL PROTEIN 8.3 g/dL (6.4-8.2)
[2020-04-22 20:37] LABS: CALCIUM 13.9 mg/dL (8.5-10.1)
[2020-04-22 21:55] VITALS: BP 144/52
[2020-04-22 22:30] VITALS: BP 187/87
[2020-04-23 05:24] VITALS: BP 187/83
[2020-04-23 08:00] VITALS: BP 156/75
[2020-04-23 08:24] LABS: POTASSIUM 3.3 mmol/L (3.5-5.1)
[2020-04-23 08:47] LABS: CALCIUM 12.4 mg/dL (8.5-10.1)
[2020-04-23 11:37] VITALS: BP 177/91
[2020-04-23 12:06] LABS: CREATININE 1.6 mg/dL (0.6-1.3); POTASSIUM 3.6 mmol/L (3.5-5.1)
[2020-04-23 16:47] VITALS: BP 165/84
[2020-04-23 20:00] VITALS: BP 168/87
[2020-04-24] VITALS: BP 179/82
[2020-04-24 04:13] VITALS: BP 160/82
[2020-04-24 05:28] LABS: HEMATOCRIT 32.8 % (42.0-52.0); MCH 25.8 pg (26.0-34.0); MCHC 32.1 g/dL (28.0-37.0); MCV 80.5 fL (80.0-100.0); MPV 7.5 fl. (7.2-11.1); RBC 4.07 mil/uL (4.50-6.00); RDW-CV 20.2 % (10.5-14.5); WBC 9.4 thou/uL (4.0-11.0)
[2020-04-24 05:30] LABS: HEMOGLOBIN 10.5 gm/dL (14.0-18.0)
[2020-04-24 05:39] LABS: ALBUMIN 2.5 g/dL (3.4-5.0); CALCIUM 10.8 mg/dL (8.5-10.1); CREATININE 1.4 mg/dL (0.6-1.3); MAGNESIUM 1.5 mg/dL (1.8-2.4); POTASSIUM 3.2 mmol/L (3.5-5.1); TOTAL BILIRUBIN 0.5 mg/dL (<0.1-1.0); TOTAL PROTEIN 6.2 g/dL (6.4-8.2)
[2020-04-24 08:00] VITALS: BP 139/82
[2020-04-24 12:03] VITALS: BP 141/52
--- NOTE | 2020-04-24 12:11 | CON ---
[address] [address] CONSULTATION Name: AUSTEN TIJERINA Room: [address] IN .R.#: [id number] Admission: 04/22/20 Attend Phys: Leonid Sol MD Discharge: Date of : 56 Report #: [id number] THIS REPORT FOR: cc: Cira Han Tammy RNP ~ Andres Lagos MD DATE OF SERVICE: 04/23/2020 REQUESTING PHYSICIAN: Dr. Bray REASON FOR CONSULTATION: Hypercalcemia and acute kidney injury HISTORY OF PRESENT ILLNESS: The patient is a very pleasant 59-year-old gentleman with medical history significant for recent acute pancreatitis, acute kidney injury in the past, history of coronary artery disease with bypass graft surgery x 4 vessels, history of Holt's esophagitis, who presents with complaint of nausea, vomiting, and abdominal pain. The patient was not able to keep anything down since last . His condition was not getting better and he was admitted to the hospital with diagnosis of acute pancreatitis. His lipase level was 6700. Also he had acute kidney injury, creatinine 2.0 and his calcium was 13.9. So, he was on Tums at home. The tums were stopped, started on IV fluids. His calcium came down from 13.9 to 12.4. His creatinine stayed unchanged at 2.0. PAST MEDICAL HISTORY: As I mentioned earlier. He also has history of hypertension and obesity. SOCIAL HISTORY: Denies smoking cigarettes or drinking alcohol. MEDICATIONS: Reviewed from my standpoint, he was on Tums and lisinopril. REVIEW OF SYSTEMS: As I mentioned earlier. PHYSICAL EXAMINATION: GENERAL: Awake, alert, oriented, still complains of abdominal pain. VITAL SIGNS: His blood pressure 156/75, heart rate 105. He is afebrile. HEENT: His pupils are round. NECK: Fatty. LUNGS: Clear. CARDIOVASCULAR: Distant heart tones. ABDOMEN: Obese, soft, but tender in the epigastric area. EXTREMITIES: Lower extremities without edema. ASSESSMENT: [place] [address] CONSULTATION Name: AUSTEN TIJERINA Room: [address] IN [facility].#: [id number] Admission: 04/22/20 Attend Phys: Leonid Sol MD Discharge: Date of : 56 Report #: [id number] 1. Acute kidney injury due to combination of acute pancreatitis that usually causes third spacing of fluids and under perfusion of the kidney and due to hypercalcemia. 2. Hypercalcemia due to combination of acute kidney injury and use of Tums. 3. Coronary artery disease. 4. Acute pancreatitis, recurrent. 5. Obesity. 6. Hypertension. PLAN: 1. Continue IV fluids. 2. Stop Tums. 3. He is on lisinopril now. We will watch his kidney function. If he does not get better, we may consider stopping his lisinopril. 5. I also asked nurse to check his postvoid residual, and if it is high, place Jones catheter. <ELECTRONICALLY SIGNED> By: Andres Lagos MD 04/24/20 1211 1106 1117Alexharinder Lagos MD /PMT
[2020-04-24 17:00] VITALS: BP 146/73
[2020-04-24 20:00] VITALS: BP 125/53
[2020-04-25] VITALS (7 sets, daily range): BP systolic 126–148; BP diastolic 45–70
[2020-04-25 02:07] LABS: GLYCOHEMOGLOBIN (HGB A1C) 8.1 % (4.8-5.6)
[2020-04-25 05:11] LABS: HEMATOCRIT 29.3 % (42.0-52.0); HEMOGLOBIN 9.6 gm/dL (14.0-18.0); MCHC 32.7 g/dL (28.0-37.0); MCV 79.5 fL (80.0-100.0); MPV 7.7 fl. (7.2-11.1); RBC 3.69 mil/uL (4.50-6.00); RDW-CV 19.3 % (10.5-14.5); WBC 8.1 thou/uL (4.0-11.0)
[2020-04-25 05:34] LABS: ALBUMIN 2.3 g/dL (3.4-5.0); CALCIUM 9.3 mg/dL (8.5-10.1); CREATININE 1.1 mg/dL (0.6-1.3); POTASSIUM 3.6 mmol/L (3.5-5.1); TOTAL BILIRUBIN 0.5 mg/dL (<0.1-1.0); TOTAL PROTEIN 5.9 g/dL (6.4-8.2)
[2020-04-25 13:09] LABS: ANA INTERPRETATION Negative (Negative)
[2020-04-26 02:06] LABS: IgG 892 mg/dL (603-1613)
[2020-04-26 04:46] LABS: HEMATOCRIT 28.4 % (42.0-52.0); HEMOGLOBIN 9.3 gm/dL (14.0-18.0); MCH 26.2 pg (26.0-34.0); MCHC 32.9 g/dL (28.0-37.0); MCV 79.6 fL (80.0-100.0); MPV 8.1 fl. (7.2-11.1); RBC 3.57 mil/uL (4.50-6.00); RDW-CV 19.1 % (10.5-14.5); WBC 7.6 thou/uL (4.0-11.0)
[2020-04-26 05:04] LABS: ALBUMIN 2.2 g/dL (3.4-5.0); CALCIUM 8.5 mg/dL (8.5-10.1); CREATININE 1.2 mg/dL (0.6-1.3); MAGNESIUM 1.6 mg/dL (1.8-2.4); TOTAL BILIRUBIN 0.5 mg/dL (<0.1-1.0)
[2020-04-26 05:11] LABS: POTASSIUM 2.7 mmol/L (3.5-5.1)
[2020-04-26 07:30] VITALS: BP 134/56
[2020-04-26] MEDS ORDERED: LANTUS100 UNIT/M SUBQ (08:22)
[2020-04-26 11:16] VITALS: BP 134/56
[2020-04-26 11:26] VITALS: BP 219/63
== END 2020-04-26 12:30 | disposition home or self-care (01) | DRG 438 ==
LOC: M.ERS 19:16 → M.2W 21:04 → M.TBA-ER 21:04 → M.2W 22:41
PROVIDERS: Emergency Medicine; Internal Medicine; Internal Medicine Gastroenterology; ADMIT Internal Medicine; ATTEND Internal Medicine
DX: K85.90 Acute pancreatitis without necrosis or infection, unspecified (principal); N17.0 Acute kidney failure with tubular necrosis; E11.9 Type 2 diabetes mellitus without complications; I10 Essential (primary) hypertension; E83.52 Hypercalcemia; E66.9 Obesity, unspecified; I25.10 Atherosclerotic heart disease of native coronary artery without angina pectoris; F17.210 Nicotine dependence, cigarettes, uncomplicated; K59.00 Constipation, unspecified; E87.70 Fluid overload, unspecified; Z20.822 Contact with and (suspected) exposure to COVID-19; Z90.49 Acquired absence of other specified parts of digestive tract; Z68.30 Body mass index [BMI] 30.0-30.9, adult; Z95.1 Presence of aortocoronary bypass graft; Z83.3 Family history of diabetes mellitus; Z82.49 Family history of ischemic heart disease and other diseases of the circulatory system

== ENCOUNTER → 2020-06-20 | Outpatient (CLI) | payer OTHER ==
[~2020-06-20] MED LIST changes: +LANTUS100 UNIT/M SUBQ; +PEPTO-BISMOL262 M1 PO; +TUMS200 MG PO
== END ==
LOC: M.CT 12:42
PROVIDERS: ATTEND Registered Nurse Diabetes Educator
DX: J90 Pleural effusion, not elsewhere classified (principal); J84.10 Pulmonary fibrosis, unspecified; J98.4 Other disorders of lung; Z72.0 Tobacco use

== ENCOUNTER → 2021-01-25 | Outpatient (CLI) | payer OTHER ==
--- NOTE | 2021-01-25 17:19 | CARDNUC ---
[place] [address] CARDIAC NUCLEAR IMAGING REPORT Name: AUSTEN TIJERINA Room: [facility]#: [id number] Admission: 01/25/21 Attend Phys: Javi Vo, Discharge: Date of : 56 Date of Service: 01/25/21 1718 Report #: [id number] THIS REPORT FOR: cc: Cira Han Tammy RNP Liston, Michael J. MD [facility] ~ APPROVED REPORT Imaging Protocol: Stress Tc-99m/Rest Tc-99m 1 day Study performed: 01/25/2021 07:30:00 Indication: Chest pain, Dyspnea Patient Location: Out-Patient Stress Nurse: Ute Justice RN Ht: 5 ft 11 in Wt: 220 lbs BSA: 2.20 m2 BMI: 30.68 Medical History Medical History: CAD s/p CABG, CAD s/p CABG, Carotid artery disease, Cardiomyopathy, CKD, COPD, Diabetes, Former Smoker, HTN, Hyperlipidemia, PVD Medications: atorvastatin, clopidogrel, fenofibrate, lisinoril, metoprolol Allergies: No known drug allergies Previous Cardiac Procedures: CABG Exercise History: Sedentary Meds Held (24 hrs): metoprolol Resting Data Rest SPECT myocardial perfusion imaging was performed in supine position 30 minutes following the intravenous injection of 10.6 mCi of Tc-99m Sestamibi. Time of rest injection: 07:55 The images were gated to evaluate regional wall motion and calculate left ventricular ejection fraction. Administration Route: IV Administration Site: Right Hand Pharmacologic Stress Pharmacologic stress test was performed by injecting Regadenoson 0.4 mg IV push over 10-15 seconds immediately followed by the intravenous injection of 34.9 mCi of Tc-99m Sestamibi. Time of stress injection: 09:00 [place] [address] CARDIAC NUCLEAR IMAGING REPORT Name: AUSTEN TIJERINA Room: [facility]#: [id number] Admission: 01/25/21 Attend Phys: Javi Vo, Discharge: Date of : 56 Date of Service: 01/25/21 1718 Report #: [id number] Administration Route: IV Administration Site: Right Hand Heart Rate at time of stress injection: 93 bpm. Gated Stress SPECT was performed 45 minutes after stress injection. The images were gated to evaluate regional wall motion and calculate left ventricular ejection fraction. Prone imaging was performed. Stress Test Details Stress Test: Pharmacologic stress testing performed using 0.4 mg of regadenoson per 5 mL given IV over 10 seconds. Reason for pharmacologic stress test: physical limitation. HR Max Heart Rate (APMHR): 158 bpm Resting HR: 90 bpm Target HR (85% APMHR): 134 bpm Max HR Achieved: 106 bpm % of APMHR: 67 Recovery HR: 100 bpm BP Resting BP: 115/69 mmHg Max BP: 159/64 mmHg Recovery BP: 119/69 mmHg ECG Resting ECG: Sinus Rhythm Stress ECG: Sinus Tachycardia ST Change: None Arrhythmia: None Recovery ECG: Sinus Rhythm Recovery ST Change: None Recovery ST Deviation: 0 mm Recovery Arrhythmia: None Clinical Reason for Termination: Completed protocol The patient tolerated Lexiscan infusion without significant cardiac symptoms. Stress ECG Conclusion The baseline twelve-lead EKG shows sinus rhythm without significant ST segment abnormality. During and post Lexiscan infusion show sinus rhythm and sinus tachycardia without significant ST segment changes when compared to baseline[place] [address] CARDIAC NUCLEAR IMAGING REPORT Name: AUSTEN TIJERINA Room: [facility]#: [id number] Admission: 01/25/21 Attend Phys: Javi Vo, Discharge: Date of : 56 Date of Service: 01/25/21 1718 Report #: [id number] Study: Good Artifact: No artifact Study Data At rest, the left ventricular ejection fraction was 37%.. Post stress, the left ventricular ejection was 42%.. TID = 1.08. Perfusion Perfusion images obtained at rest and post Lexiscan stress show a moderate size severe intensity fixed defect involving the basal to mid inferior wall. No other significant fixed or reversible defects are identified. Wall Motion There is a region of akinesis involving the mid inferior wall. There is septal hypokinesis consistent with prior bypass procedure. Global LV systolic function appears to be moderately decreased. 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 Global LV systolic function is moderately decreased with wall motion abnormalities as outlined above. The following is consistent with an ischemic cardiomyopathy. This is a moderate risk study based on left ventricular systolic dysfunction. <Conclusion> The baseline twelve-lead EKG shows sinus rhythm without significant ST segment abnormality. During and post Lexiscan infusion show sinus rhythm and sinus tachycardia without significant ST segment changes when compared to baseline. <ELECTRONICALLY SIGNED> By: Javi Vo MD, FACC 01/25/211717 17 17 Javi Vo MD, FACC /INF
== END ==
LOC: M.NUC 01-02 16:03
PROVIDERS: ATTEND Internal Medicine Cardiovascular Disease
DX: I25.810 Atherosclerosis of coronary artery bypass graft(s) without angina pectoris (principal)